=== PATIENT | female | born 1975 | race African-American/Black ===

== ENCOUNTER 2017-01-12 18:06 | Emergency (ER) | payer MEDICAID, OTHER ==
[~2017-01-12] VITALS: Ht 172.7 cm; Wt 90.7 kg
[~2017-01-12 18:06] MED LIST: IBUPROFEN600 MG ORAL; NKM
[2017-01-12 18:20] VITALS: BP 153/84
[2017-01-12] MEDS ORDERED: PREDNISONE20 MG ORAL (19:05)
[2017-01-12] MEDS ORDERED: ARTIFICIAL TEAR15 ML LEFT EYE (19:05)
[2017-01-12 19:07] VITALS: BP 142/79
--- NOTE | 2017-01-12 19:44 | Emergency Room Report ---
History of Present Illness General Chief Complaint: Earache Source: Patient Present Illness [facility] The patient is a 41-year-old female who denies any medical history presenting for left ear pain and left-sided facial weakness. The patient states that she felt a sudden left earache 3 days prior which then led to the facial weakness. Pain in the ear is described as a 4/10 dull ache it does not radiate from the ear. Patient denies any discharge or any trauma to the ear. The patient does admit to having a recent upper respiratory infection prior to this. The patient states that she has been unable to smile fully on the left side and has experienced weakness of the left eyelid. The patient also admits to a change of taste on the left side of the tongue. Patient denies any other symptoms including dizziness, blurred vision, neck pain or stiffness, headache, nausea, vomiting, fever, chills, chest pain, shortness of breath, numbness or tingling of the extremities Allergies: Coded Allergies: No Known Allergies (Unverified , 09/11/14) Patient History Past Medical History: see triage record Pertinent Family History: none Last Menstrual Period: 01/12/17 Reviewed Nursing Documentation: PMH: Agreed, PSxH: Agreed Nursing Documentation-PMH Past Medical History: No Stated History Review of Systems All Other Systems: negative except mentioned in HPI Physical Exam Vital Signs Date Time Temp Pulse Resp B/P Pulse Ox O2 Delivery O2 Flow Rate FiO2 01/12/17 18:12 97.9 112 20 153/84 99 Room Air Sp02 EP Interpretation: reviewed, normal General Appearance: no apparent distress, alert, GCS 15, non-toxic Head: normocephalic, atraumatic Eyes: bilateral eye EOMI, bilateral eye PERRL, bilateral eye normal inspection ENT: hearing grossly normal, normal pharynx, no angioedema, normal voice Neck: full range of motion, supple/symm/no masses Respiratory: chest non-tender, lungs clear, normal breath sounds, no wheezing, speaking full sentences Cardiovascular #1: regular rate, rhythm, no edema Musculoskeletal: back normal, gait/station normal, normal range of motion, non- tender Neurologic: alert, oriented x3, responsive, sensory intact, normal gait, other - There is noted weakness of the left facial nerve. Patient is unable to furrow left brow. Unable to fully close left eye. Unable to fully smile on the left side. Psychiatric: judgement/insight normal, memory normal, mood/affect normal, no suicidal/homicidal ideation Reflexes: 3+ bicep (R), 3+ bicep (L), 3+ tricep (R), 3+ tricep (L), 3+ knee (R) , 3+ knee (L) Skin: normal color, no rash, warm/dry, well hydrated Lymphatic: no adenopathy Medical Decision Making PA Attestation Dr. Owen is my supervising physician. Patient management was discussed with my supervising physician Diagnostic Impression: Primary Impression: Triplett's palsy ER Course The patient is a 41-year-old female who denies any medical history presenting for left ear pain and left-sided facial weakness Differential diagnosis considered: Triplett's palsy, CVA, sinusitis PE: The patient is initially tachycardic and hypertensive. At time of discharge , heart rate within normal limits and mildly hypertensive.NAD There is noted weakness of the left facial nerve. Patient is unable to furrow left brow. Unable to fully close left eye. Unable to fully smile on the left side. Otherwise all cranial nerves are intact. The patient will be discharged home and will be treated with prednisone. ER precautions are given and the patient will follow up with PMD Last Vital Signs Date Time Temp Pulse Resp B/P Pulse Ox O2 Delivery O2 Flow Rate FiO2 01/12/17 19:07 97.9 76 20 142/79 99 Room Air Status: improved Disposition: HOME, SELF-CARE Condition: Improved Scripts Dextran 70/Hypromellose (ARTIFICIAL TEARS EYE DROPS*) 15 Ml Drops 1 DROP LEFT EYE PRN, #15 ML 0 Refills Prov: CYDNEY SALAZAR 01/12/17 Prednisone* (PREDNISONE*) 20 Mg Tablet 60 MG ORAL DAILY, #23 TAB Prov: CYDNEY SALAZAR 01/12/17 Patient Instructions: Triplett Palsy Additional Instructions: I discussed my findings with the patient. All questions and concerns have been answered. Treatment and medication compliance have been addressed. I advised the patient that they need to follow up with PMD in 3-5 days. Return to ED if symptoms worsen, new symptoms arise, or if needed for any reason. Patient verbalized understanding of discharge instructions. CYDNEY SALAZAR Jan 12, 2017 19:44
== END 2017-01-12 19:10 | disposition home or self-care (01) ==
LOC: EMR 18:50
DX: G51.0 Bell's palsy (principal)
CPT/HCPCS: 99284

== ENCOUNTER 2019-03-16 17:37 | Emergency (ER) | payer OTHER ==
[~2019-03-16] VITALS: Ht 172.7 cm; Wt 83.9 kg
[~2019-03-16 17:37] MED LIST changes: +ARTIFICIAL TEAR15 ML LEFT EYE; +PREDNISONE20 MG ORAL
[2019-03-16 18:10] VITALS: BP 124/76
[2019-03-16] MEDS ORDERED: IBUPROFEN600 MG ORAL (18:45)
[2019-03-16 18:55] VITALS: BP 124/76
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
== END 2019-03-16 18:55 | disposition home or self-care (01) ==
LOC: EMR 18:25
DX: S40.012A Contusion of left shoulder, initial encounter (principal); W22.09XA Striking against other stationary object, initial encounter; Y92.811 Bus as the place of occurrence of the external cause
CPT/HCPCS: 99282

== ENCOUNTER 2019-06-08 18:34 | Emergency (ER) | payer OTHER ==
[~2019-06-08] VITALS: Ht 175.3 cm; Wt 83.9 kg
[2019-06-08 18:38] VITALS: BP 123/86
--- NOTE | 2019-06-08 18:45 | NUR ---
ED Nurse Note: patient walked into ED due to feeling weak and nausea for 4 days. patient reports diarrhea as well. patient reports she has been drinking a lot of water starting about 1 week ago, she channged her diet.
--- NOTE | 2019-06-08 19:03 | NUR ---
ED Nurse Note: UA / Blood sent to lab
--- NOTE | 2019-06-08 19:04 | NUR ---
HAND-OFF: Report given to Lori SCHULTE.
[2019-06-08 19:39] LABS: BASOPHILS % (AUTO) 1.2 % (0.0-2.0); EOSINOPHILS % (AUTO) 2.1 % (0.0-3.0); HEMATOCRIT 38.6 % (37.0-47.0); LYMPHOCYTES % (AUTO) 25.8 % (20.0-45.0); MEAN CORPUSCULAR VOLUME 89 FL (80-99); MONOCYTES % (AUTO) 7.4 % (1.0-10.0); NEUTROPHILS % (AUTO) 63.4 % (45.0-75.0); PLATELET COUNT 284 K/UL (150-450); RED BLOOD COUNT 4.33 M/UL (4.20-5.40); RED CELL DISTRIBUTION WIDTH 14.8 % (11.6-14.8); WHITE BLOOD COUNT 6.1 K/UL (4.8-10.8)
[2019-06-08 19:41] LABS: COLOR,URINE YELLOW
[2019-06-08 19:42] LABS: APPEARANCE,URINE SLIGHTLY CLOUDY; BILIRUBIN, URINE NEGATIVE (NEGATIVE); GLUCOSE, URINE (UA) NEGATIVE (NEGATIVE); KETONES,URINE NEGATIVE (NEGATIVE); LEUKOCYTE ESTERASE ,URINE 2+ (NEGATIVE); NITRITE,URINE NEGATIVE (NEGATIVE); PROTEIN,URINE NEGATIVE (NEGATIVE); UROBILINOGEN,URINE NORMAL MG/DL (0.0-1.0)
[2019-06-08 19:49] LABS: ANION GAP 9 mmol/L (5-15); BLOOD UREA NITROGEN 7 mg/dL (7-18); CALCIUM 9.3 MG/DL (8.5-10.1); CARBON DIOXIDE 28 MMOL/L (21-32); CHLORIDE 103 MMOL/L (98-107); POTASSIUM 4.1 MMOL/L (3.5-5.1); SODIUM 140 MMOL/L (136-145)
[2019-06-08 19:54] LABS: ALANINE AMINOTRANSFERASE 10 U/L (12-78); ALBUMIN 3.7 G/DL (3.4-5.0); ALBUMIN/GLOBULIN RATIO 0.8 (1.0-2.7); ALKALINE PHOSPHATASE 74 U/L (46-116); ASPARTATE AMINO TRANSFERASE 16 U/L (15-37); BILIRUBIN,TOTAL 0.3 MG/DL (0.2-1.0)
--- NOTE | 2019-06-08 20:25 | Emergency Room Report ---
History of Present Illness General Chief Complaint: Generalized Weakness Source: Patient Present Illness HPI 43-year-old female with no significant past medical history here complaining of few days of feeling fatigue and urinary frequency. Patient reports that she recently changed her diet to eating less and drinking more water about 11 cups of water every day. Denies syncope, dizziness, headache, blurry vision, vomiting, diarrhea. Patient reports that she started feeling nauseated yesterday. Her last menstrual period was 2 weeks ago and denies being . Denies alcohol intake, tobacco smoke, drug use. Has not taken medication for her symptoms. Has not seen her primary care provider. Allergies: Coded Allergies: AMOXICILLIN (Verified Allergy, Unknown, 06/08/19) Patient History Past Medical History: see triage record Past Surgical History: unable to obtain Pertinent Family History: none Last Menstrual Period: 05/25/19 Now: No Immunizations: UTD Reviewed Nursing Documentation: PMH: Agreed; PSxH: Agreed Nursing Documentation-PMH Past Medical History: No Stated History Review of Systems All Other Systems: negative except mentioned in HPI Physical Exam Vital Signs Date Time Temp Pulse Resp B/P (MAP) Pulse Ox O2 Delivery O2 Flow Rate FiO2 06/08/19 18:38 97.9 100 18 123/86 (98) 99 Room Air Sp02 EP Interpretation: reviewed, normal General Appearance: normal inspection, well appearing, no apparent distress, alert, GCS 15 Head: normocephalic, atraumatic Eyes: bilateral eye normal inspection, bilateral eye PERRL ENT: normal ENT inspection, hearing grossly normal, normal pharynx, no angioedema Neck: normal inspection, full range of motion, supple, no carotid bruits Respiratory: normal inspection, chest non-tender, lungs clear, no rhonchi, no wheezing Cardiovascular #1: normal inspection, normal peripheral pulses, regular rate, rhythm, no JVD, no murmur, normal capillary refill Gastrointestinal: normal inspection, non tender, soft Genitourinary: no CVA tenderness Neurologic: normal inspection, alert, oriented x3 Psychiatric: normal inspection, judgement/insight normal Skin: no rash Lymphatic: normal inspection, no adenopathy Medical Decision Making PA Attestation All my diagnosis and treatment plans were reviewed ad discussed with my supervising physician Dr. Fragoso Diagnostic Impression: Primary Impression: UTI (urinary tract infection) Additional Impression: Fatigue ER Course 43-year-old female with no significant past medical history here complaining of few days of feeling fatigue and urinary frequency. Patient reports that she recently changed her diet to eating less and drinking more water about 11 cups of water every day. Denies syncope, dizziness, headache, blurry vision, vomiting, diarrhea. Patient reports that she started feeling nauseated yesterday. Her last menstrual period was 2 weeks ago and denies being . Denies alcohol intake, tobacco smoke, drug use. Has not taken medication for her symptoms. Has not seen her primary care provider. Ddx considered but are not limited to: UTI, pylonephritis, urinary incontinence , prolapsed bladder Vital signs: are WNL, pt. is afebrile H&PE are most consistent with: UTI, fatigue ORDERS: UA, CBC, CMP, Macrobid, Zofran ED INTERVENTIONS: None required at this time. DISCHARGE: At this time pt. is stable for d/c to home. Will provide printed patient care instructions, and any necessary prescriptions. Care plan and follow up instructions have been discussed with the patient prior to discharge. Follow-up with your primary care provider take medication as directed your change of diet may have contributed to your symptoms return to the emergency room if worsening symptoms Positive white blood cells and leukocytes in urine Last Vital Signs Date Time Temp Pulse Resp B/P (MAP) Pulse Ox O2 Delivery O2 Flow Rate FiO2 06/08/19 19:02 100 18 Room Air 06/08/19 18:38 97.9 123/86 99 Disposition: HOME, SELF-CARE Condition: Stable Scripts Ondansetron (Zofran) 4 Mg Tablet 4 MG ORAL Q6H PRN for Nausea & Vomiting, #10 TAB Prov: Brandon Stephens 06/08/19 Nitrofurantoin Monohyd/M-Cryst* (MACROBID 100 MG*) 100 Mg Capsule 100 MG ORAL EVERY 12 HOURS for 7 Days, #14 CAP Prov: Brandon Stephens 06/08/19 Patient Instructions: Fatigue, Urinary Tract Infection, [id number] Additional Instructions: Take medication as directed increase your oral hydration however follow-up with your primary care provider as your change of diet may contribute to your weakness. And nausea. Brandon Stephens Jun 08, 2019 20:25
[2019-06-08] MEDS ORDERED: NITROFURANTOIN100 M2 ORAL (20:26)
[2019-06-08] MEDS ORDERED: ZOFRAN4 M1 ORAL (20:26)
[2019-06-08 20:32] VITALS: BP 120/83
--- NOTE | 2019-06-08 20:32 | NUR ---
ER DISCHARGE NOTE: Patient is cleared to be discharged per ERMD, pt is aox4, on room air, with stable vital signs. pt was given dc and prescription instructions, pt was able to verbalize understanding, pt id band removed without complications. pt is able to ambulate with steady gait. pt took all belongings.
== END 2019-06-08 20:32 | disposition home or self-care (01) ==
LOC: EMR 18:52
DX: N39.0 Urinary tract infection, site not specified (principal); R53.83 Other fatigue; R11.0 Nausea; Z88.0 Allergy status to penicillin
CPT/HCPCS: 36415; 80053; 81001; 85025; 87086; 99284

== ENCOUNTER 2020-07-07 15:30 | Emergency (ER) | payer OTHER ==
[~2020-07-07] VITALS: Ht 172.7 cm; Wt 89.4 kg
[~2020-07-07 15:30] MED LIST changes: +NITROFURANTOIN100 M2 ORAL; +ZOFRAN4 M1 ORAL
[2020-07-07] MEDS ORDERED: PRILOSEC OTC20 MG ORAL ×3 (15:59→16:22)
[2020-07-07] MEDS ORDERED: FAMOTIDINE20 MG ORAL ×3 (15:59→16:22)
[2020-07-07 16:00] VITALS: BP 131/78
[2020-07-07] MEDS ORDERED: Lidocaine 2% Visc 15ml soln ORAL ONE (16:00)
[2020-07-07] MEDS ORDERED: Mylanta II UD 30ml ORAL ONE (16:00)
[2020-07-07] MEDS ORDERED: Dicyclomine HCl 10mg/5ml oral soln ORAL ONE (16:00)
--- NOTE | 2020-07-07 16:01 | Emergency Room Report ---
History of Present Illness General Chief Complaint: Abdominal Pain Source: Patient Present Illness HPI Disclaimer: Please note that this report is being documented using [employer] technology. This can lead to erroneous entry secondary to incorrect interpretation by the dictating instrument. HPI: 44-year-old female presents for evaluation of abdominal discomfort. Patient reports 3 to 4 weeks of epigastric burning after eating that is worse with lying flat. Denies nausea, vomiting, diarrhea, abdominal pain or cramping. Denies chest pain. Reports a burning and gnawing sensation similar to her prior ulcer history. States she was treated successfully for H. pylori infection over 10 years ago. She has been prescribed Prilosec but has not been taking it. Reports drinking a lot of coffee recently. Currently her discomfort is as a 02/20. PMH: H. pylori infection PSH: Reviewed Allergies: Amoxicillin, itching Social Hx: Reviewed Allergies: Coded Allergies: AMOXICILLIN (Verified Allergy, Unknown, 06/08/19) COVID-19 Screening Contact w/high risk pt: No Experienced COVID-19 symptoms?: No COVID-19 Testing performed PROPELLER ENGINEER: No Patient History Last Menstrual Period: current Now: No Nursing Documentation-PMH Past Medical History: No Stated History Review of Systems All Other Systems: negative except mentioned in HPI Physical Exam Vital Signs Date Time Temp Pulse Resp B/P (MAP) Pulse Ox O2 Delivery O2 Flow Rate FiO2 07/07/20 15:36 98.1 18 16 128/75 (92) 98 Room Air General: Awake and alert, no acute distress HEENT: NC/AT. EOMI. Cardiovascular: RRR. S1 and S2 normal. No murmur appreciated Resp: Normal work of breathing. No cough, wheezing or crackles appreciated Abdomen: Abdomen is soft, nondistended. Nontender Skin: Intact. No abrasions, laceration or rash over the exposed skin MSK: Normal tone and bulk. Moving all extremities. No obvious deformity. Neuro: Awake and alert. Mentating appropriately. Medical Decision Making Diagnostic Impression: Primary Impression: GERD (gastroesophageal reflux disease) ER Course Is a 44-year-old female history of GERD and prior H. pylori infection treated successfully with antibiotics over 10 years ago presenting with epigastric discomfort for the past month exacerbated by eating and laying flat. Differential includes was not limited to gastritis, gastroenteritis, GERD, peptic ulcer disease, pancreatitis, angina. Screening EKG was obtained with did not show any signs of acute ischemia or significant changes. Her history is most consistent with acid reflux disease and she has been without antacids for some time. Will restart her omeprazole and start Pepcid as well. She was given a GI cocktail in the ED with significant improvement in symptoms. Stable for outpatient follow-up and I encouraged her to obtain retesting for H. pylori with breath test. Do not believe she requires emergent labs or imaging at this time. She will follow-up in clinic. Discussed reasons to return to the ED. She understands agrees with the treatment plan. EKG Diagnostic Results EKG Time: 16:14 Rate: normal Rhythm: NSR ST Segments: no acute changes Other Impression Sinus rhythm, borderline left axis, normal intervals, no ST segment changes. Rhythm Strip Diag. Results Rhythm Strip Time: 16:14 EP Interpretation: yes Rate: 100 Rhythm: NSR, no PVC's, no ectopy Last Vital Signs Date Time Temp Pulse Resp B/P (MAP) Pulse Ox O2 Delivery O2 Flow Rate FiO2 07/07/20 15:36 98.1 18 16 128/75 (92) 98 Room Air Disposition: HOME, SELF-CARE Condition: Stable Scripts Famotidine* (Pepcid 20mg tablet*) 20 Mg Tablet 20 MG ORAL DAILY, #30 TAB 0 Refills Prov: Mahamed Mckeon MD 07/07/20 Omeprazole Magnesium (PRILOSEC OTC) 20 Mg Tablet.dr 20 MG ORAL DAILY for 30 Days, #30 TAB Prov: Mahamed Mckeon MD 07/07/20 Referrals: [facility]. [facility] Patient Instructions: Food Choices for Gastroesophageal Reflux Disease, Adult, [id number] Additional Instructions: Please follow-up with your primary care doctor in the next 1 to 3 days to discuss this emergency department visit and for reevaluation. Discussed with clinic to schedule a urea breath test for H. pylori infection given your history. Start taking antacids as prescribed. If you have any new or worsening symptoms please return to the emergency department for reevaluation. Please note that this report is being documented using [employer] technology. This can lead to erroneous entry secondary to incorrect interpretation by the dictating instrument. Mahamed Mckeon MD Jul 07, 2020 16:01
[2020-07-07 16:35] VITALS: BP 132/75
== END 2020-07-07 16:37 | disposition home or self-care (01) ==
LOC: EMR 16:14
DX: K21.9 Gastro-esophageal reflux disease without esophagitis (principal); Z88.8 Allergy status to other drugs, medicaments and biological substances
CPT/HCPCS: 93005; Z7502; 99283